=== PATIENT | male | born 1970 | race Caucasian/White ===

== ENCOUNTER 2018-09-06 11:28 | Emergency (ER) | payer OTHER ==
--- NOTE | 2018-09-06 14:17 | RAD ---
LEFT SHOULDER 3 VIEWS: Date: 09/06/18 HISTORY: Fall. COMPARISON: None. 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 No acute fracture. 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 Acromioclavicular alignment is normal. There is a fracture of the left anterior fourth rib, chronic. 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 POS: C
== END 2018-09-06 13:06 | disposition home or self-care (01) ==
LOC: ERS 11:28
DX: S40.012A Contusion of left shoulder, initial encounter (principal); W19.XXXA Unspecified fall, initial encounter; Y92.69 Other specified industrial and construction area as the place of occurrence of the external cause; Y99.0 Civilian activity done for income or pay